=== PATIENT | female | born 1980 | race Caucasian/White ===

== ENCOUNTER → 2017-12-17 | Outpatient (CLI) | payer OTHER | LOC: M WUC 09:57 | DX: Z00.00 Encounter for general adult medical examination without abnormal findings (principal) | CPT/HCPCS: 71046 ==

== ENCOUNTER → 2018-06-23 | Outpatient (REF) | payer OTHER | LOC: M LAB REF 13:15 | PROVIDERS: ATTEND Physician Assistant | DX: J02.9 Acute pharyngitis, unspecified (principal) ==

== ENCOUNTER → 2018-06-29 | Outpatient (CLI) | payer OTHER ==
--- NOTE | 2018-06-29 18:26 | REP ---
CHEST, TWO VIEWS: Two views of the chest are performed and compared to prior study of 12/17/2017. I suspect a small area of infiltrate in the posteromedial left lower lobe. No infiltrate is seen on the right. The heart is normal in size and the mediastinal silhouette is unremarkable. The visualized osseous structures appear intact. IMPRESSION: Suspect small area of infiltrate posteromedial left lower lobe. Electronically Signed by Usman Flores MD 06/29/2018 07:29 P
== END ==
LOC: M LRY 16:57
PROVIDERS: ATTEND Physician Assistant Medical
DX: R91.8 Other nonspecific abnormal finding of lung field (principal); R05 Cough